=== PATIENT | female | born 1955 | race Caucasian/White ===

== ENCOUNTER → 2017-06-07 | Outpatient (CLI) | payer OTHER ==
[2017-06-07 09:43] LABS: BASO % 0.4 %; BASO ABS # 0.02 K/uL (0-0.2); COMPLETE YES; EOS % 2.5 %; HEMATOCRIT 41.7 % (37-47); IG% 0.2 %; LYMPH % 27.2 %; MEAN CELL VOLUME 91.9 fL (80-100); MEAN CORPUSCULAR HGB CONC 32.6 g/dl (32-36); MEAN PLATELET VOLUME 10.7 fL (7.4-10.4); MONO % 9.1 %; NEUT % 60.6 %; PLATELET COUNT 281 K/uL (130-400); RED BLOOD COUNT 4.54 M/uL (4.2-5.4); WHITE BLOOD COUNT 5.52 K/uL (4.8-10.8)
[2017-06-07 09:54] LABS: BLOOD UREA NITROGEN 12 mg/dl (7-18); BUN/CREATININE RATIO 16.2 (10-20); CALCIUM 9.1 mg/dl (8.5-10.1); CARBON DIOXIDE 28 mmol/L (21-32); CHLORIDE 106 mmol/L (98-107); CREATININE 0.73 mg/dl (0.60-1.20); GLUCOSE 100 mg/dl (70-99); MAGNESIUM 2.4 mg/dl (1.8-2.4); POTASSIUM 3.8 mmol/L (3.5-5.1); SODIUM 140 mmol/L (136-145)
[2017-06-07 10:04] LABS: THYROID STIMULATING HORMONE 0.618 uIu/ml (0.300-4.500)
== END | disposition home or self-care (01) ==
LOC: C.LAB1850 08:30
PROVIDERS: ATTEND Family Medicine
DX: R00.2 Palpitations (principal)

== ENCOUNTER → 2017-08-20 | Outpatient (CLI) | payer OTHER | END | disposition home or self-care (01) | LOC: C.PAPS 16:31 | PROVIDERS: ATTEND Obstetrics & Gynecology | DX: Z12.4 Encounter for screening for malignant neoplasm of cervix (principal) ==

== ENCOUNTER → 2017-09-03 | Outpatient (CLI) | payer OTHER ==
--- NOTE | 2017-09-03 15:33 | MAMMOGRAPHY REPORT ---
BILATERAL DIGITAL SCREENING MAMMOGRAM WITH CAD: 09/03/2017 CLINICAL HISTORY: Routine screening. Patient has no complaints. TECHNIQUE: Current study was also evaluated with a Computer Aided Detection (CAD) system. Bilateral CC and MLO views were obtained. COMPARISON: Comparison is made to exams dated: 08/28/2016 mammogram, 08/26/2015 mammogram, 4 mammogram, 07/25/2013 mammogram, 07/22/2012 mammogram, and 07/16/2011 mammogram - [facility]. BREAST COMPOSITION: There are scattered areas of fibroglandular density in both breasts. FINDINGS: No suspicious masses, calcifications, or areas of architectural distortion are noted in ei ther breast. There has been no significant interval change compared to prior exams. Scattered benign -appearing left breast calcifications are again noted. IMPRESSION: ACR BI-RADS CATEGORY 2: BENIGN There is no mammographic evidence of malignancy. A 1 year screening mammogram is recommended. The pa tient will receive written notification of the results. Approximately 10% of breast cancers are not detected with mammography. A negative mammographic report should not delay biopsy if a clinically suggestive mass is present. Evelin Sam M.D. /:09/03/2017 14:42:50 Sealing Machine Operator: Sheree ESCALANTE(R)(M), [facility] letter sent: Normal 1/2 BI-RADS Code: ACR BI-RADS Category 2: Benign
== END | disposition home or self-care (01) ==
LOC: C.MAMM 14:19
PROVIDERS: ATTEND Family Medicine
DX: Z12.31 Encounter for screening mammogram for malignant neoplasm of breast (principal)

== ENCOUNTER → 2018-01-31 | Day surgery (SDC) | payer OTHER ==
[2018-01-25 13:20] VITALS: Ht 160 cm; Wt 61.4 kg
[~2018-01-31] VITALS: Ht 160 cm; Wt 61.4 kg
[~2018-01-31] MED LIST: FLUT0.15 NAE; LIDOCAINE HCL 2% 2 ML VIAL (20MG/ML) ONE; PROPOFOL IV EMULSION 10 MG/ML 20 ML VIAL ONE; SODIUM CHLORIDE 0.9% 500ML 500 ML IV ONE
--- NOTE | 2018-01-31 14:37 | Endo History and Physical ---
History & Physical Date of Service: January 31, 2018. Chief Complaint: screening Referring Physician: Dr. Betahny Araujo History of Present Illness 62 yo CF who presents for screening colonoscopy. Past Surgical History Hx Cardiac Surgery: No Hx Internal Defibrillator: No Hx Pacemaker: No Hx Abdominal Surgery: No Hx of Implantable Prosthesis: No Hx Cancer Surgery: No Hx Thoracic Surgery: No Hx Orthopedic: No Hx Urinary Tract Surgery: No Family History IBD Social History Smoking Status: Former Smoker Hx Substance Use: No Hx Alcohol Use: No Allergies Coded Allergies: No Known Allergies (Verified , 01/31/18) Current Medications Reported Home Medications Medications Dose Route/Sig Max Daily Dose Days Date Category Flonase Allergy Relief (Fluticasone Propionate (Nasal)) 50 Mcg/Act Spr 1 Puff MC DAILY PRN 01/25/18 Reported Vital Signs Weight (Kilograms): 61.36 Height (Feet): 5 Height (Inches): 3 Date Time Temp Pulse Resp B/P (MAP) Pulse Ox O2 Delivery O2 Flow Rate FiO2 01/31/18 14:18 36.9 80 18 139/84 (102) 96 Room Air Physical Exam General Appearance: WD/WN, no apparent distress Respiratory/Chest: Auscultation: breath sounds normal Cardiovascular: Heart Auscultation: RRR Abdomen: Bowel Sounds: normal Inspection & Palpation: soft, non-distended, no tenderness, guarding & rebound Assessment and Plan Assessment: 62 yo CF who presents for screening colonoscopy. Plan: Proceed with colonoscopy.
--- NOTE | 2018-01-31 15:40 | Anesthesiology Progress Note ---
Anesthesia Post Op Note Date & Time January 31, 2018 at 15:40 Vital Signs Pain Intensity: 0 Vital Signs Past 12 Hours Date Time Temp Pulse Resp B/P (MAP) Pulse Ox O2 Delivery O2 Flow Rate FiO2 01/31/18 14:18 36.9 80 18 139/84 (102) 96 Room Air Notes Mental Status: alert / awake / arousable, participated in evaluation Pt Amnestic to Procedure: Yes Nausea / Vomiting: adequately controlled Pain: adequately controlled Airway Patency, RR, SpO2: stable & adequate BP & HR: stable & adequate Hydration State: stable & adequate Anesthetic Complications: no major complications apparent
--- NOTE | 2018-01-31 15:45 | GI REPORT ---
Patient Name: Pily Coburn Procedure Date: 01/31/2018 2:36 PM Date of : 1955 Admit Type: Outpatient Age: 62 Gender: Female Attending MD: Clarence West DO Procedure: Colonoscopy Providers: Clarence Wets DO Referring MD: Bethany Araujo Md Indications: Screening for colorectal malignant neoplasm Medicines: Monitored Anesthesia Care Complications: No immediate complications. Estimated Blood Loss: Estimated blood loss: none. Procedure: Pre-Anesthesia Assessment: - Prior to the procedure, a History and Physical was performed, and patient medications and allergies were reviewed. The patient's tolerance of previous anesthesia was also reviewed. The risks and benefits of the procedure and the sedation options and risks were discussed with the patient. All questions were answered, and informed consent was obtained. Prior Anticoagulants: The patient has taken no previous anticoagulant or antiplatelet agents. ASA Grade Assessment: III - A patient with severe systemic disease. After reviewing the risks and benefits, the patient was deemed in satisfactory condition to undergo the procedure. After I obtained informed consent, the scope was passed under direct vision. Throughout the procedure, the patient's blood pressure, pulse, and oxygen saturations were monitored continuously. The scope was introduced through the anus and advanced to the terminal ileum. The colonoscopy was performed without difficulty. The patient tolerated the procedure well. The quality of the bowel preparation was good. The terminal ileum, ileocecal valve, appendiceal orifice, and rectum were photographed. Findings: The perianal and digital rectal examinations were normal. Multiple small-mouthed diverticula were found in the sigmoid colon. Non-bleeding internal hemorrhoids were found during retroflexion. The hemorrhoids were small. Impression: - Diverticulosis in the sigmoid colon. - Non-bleeding internal hemorrhoids. - No specimens collected. Recommendation: - Resume previous diet. - Continue present medications. - Repeat colonoscopy in 10 years for surveillance. - Return to primary care physician as previously scheduled. Clarence West DO 01/31/2018 3:44:35 PM This report has been signed electronically. Note Initiated On: 01/31/2018 2:36 PM Number of Addenda: 0 I attest to the content of the Intraoperative Record and orders documented therein, exceptions below {[id number]}
--- NOTE | 2018-01-31 15:46 | Discharge Instructions ---
Endoscopy Patient Instructions Date / Procedure(s) Performed January 31, 2018. Colonoscopy Allergy Information Coded Allergies: No Known Allergies (Verified , 01/31/18) Discharge Date / Findings January 31, 2018. Diverticulosis Internal hemorrhoids Medication Instructions OK to resume all medications today as prescribed Reported Home Medications Medications Dose Route/Sig Max Daily Dose Days Date Category Flonase Allergy Relief (Fluticasone Propionate (Nasal)) 50 Mcg/Act Spr 1 Puff MC DAILY PRN 01/25/18 Reported Provider Instructions Activity Restrictions - No exercising or heavy lifting for 24 hours. - Do not drink alcohol the day of the procedure. - Do not drive a car or operate machinery until the day after the procedure. - Do not make any important decisions or sign important papers in 24 hours after the procedure. Following Day: - Return to full activity which may include returning to work/school. Diet Start your diet with liquids and light foods (jello, soup, juice, toast). Then eat your usual diet if not nauseated. Treatment For Common After Affects For mild abdominal pain, bloating, or excessive gas: - Rest - Eat lightly - Lie on right side Follow-Up Information Follow-up with Dr. Bethany Araujo as scheduled Anesthesia Information What You Should Know You have had a procedure that required some medicine to reduce anxiety and discomfort. This treatment is called moderate sedation. After receiving the treatment, you may be sleepy, but you will be able to breathe on your own. The effects of the treatment may last for several hours. Follow these instructions along with Activity/Diet recommendations noted above: * Do NOT do anything where dizziness or clumsiness would be dangerous. * Rest quietly at home today, then you can be up and about tomorrow. * Have a responsible person stay with you the rest of today. * You may have had an I.V. today. If so, you may take the dressing off later today. Recommendations Call your doctor if: * Trouble breathing * Continuous vomiting for more than 24 hours * Temperature above 101 degrees * Severe abdominal pain or bloating * Pain not relieved by pain medicine ordered * There is increased drainage or redness from any incision * A large amount of rectal bleeding greater than 2-3 tablespoons. (If you had a polyp/s removed or have hemorrhoids, a small amount of blood - from the rectum is to be expected.) * You have any unanswered questions or concerns. IN THE EVENT OF A SERIOUS EMERGENCY, GO TO THE NEAREST EMERGENCY ROOM Your discharge instructions were prepared by provider Clarence West. Patient Instructions Signature Page Pily Coburn Patient (or Guardian) Signature/Date: I have read and understand the instructions given to me by my caregivers. Caregiver/RN/Doctor Signature/Date: The above-named patient and/or guardian has received patient instructions on this date. + Original Patient Signature Page (only) stays with chart. Please make copy for patient.
[2018-01-31 16:09] VITALS: BP 158/88; PULSE 70; O2SAT 98
== END | disposition home or self-care (01) ==
LOC: C.GI 13:39
PROVIDERS: ATTEND Internal Medicine
DX: Z12.11 Encounter for screening for malignant neoplasm of colon (principal); K57.30 Diverticulosis of large intestine without perforation or abscess without bleeding; K64.8 Other hemorrhoids; H54.413A Blindness right eye category 3, normal vision left eye; Z87.891 Personal history of nicotine dependence

== ENCOUNTER 2021-05-15 19:25 | Inpatient (IN) ==
[2021-05-15] MEDS ORDERED: SODIUM CHLORIDE 0.9% 1000ML 1,000 ML IV STA (20:10)
[2021-05-15] MEDS ORDERED: MoRPHine SULFATE 4 MG/ML 1 ML CARP\\VIAL IV PRN (20:10)
[2021-05-15] MEDS ORDERED: ONDANSETRON INJ 2 MG/ML 2 ML VIAL IV STA (20:10)
--- NOTE | 2021-05-15 20:13 | Emergency Department Note ---
Impression & Plan Acute hyponatremia, Acute left flank pain, Urinary tract infection ED Provider Note NAME: RENÉE KIM AGE: 65 SEX: F : 1955 ARRIVES VIA: Walk-In INFORMANT: Patient, ED PROVIDER(S): Evangelist Brice DO CHIEF COMPLAINT: Flank pain HPI: The patient is a 65-year-old female who presented to the emergency department for an evaluation of flank pain. The patient states that she started having hematuria and dysuria this morning. She went to see her family doctor and was started on an antibiotic for presumed urinary tract infection. The patient started having worsening symptoms this evening. She started having pain in her left flank as well as nausea and vomiting. She also notices gross hematuria. The patient states that she is very uncomfortable. She noticed episodes of emesis while she was in the bathroom trying to urinate. She denies having any chest pain. She denies having any difficulty breathing. She has had no recent trauma. She does not have a fever as far she knows. ROS: See above HPI for pertinent positives & negatives. A total of 10 systems reviewed and were otherwise negative. PAST MEDICAL HISTORY: See Below PAST SURGICAL HISTORY: See Below FAMILY HISTORY: See Below SOCIAL HISTORY: See Below HOME MEDICATIONS: See Below ALLERGIES: See Below VITALS: See Below PHYSICAL EXAMINATION: GENERAL: The patient is awake and alert. The patient is very anxious appearing and appears to be uncomfortable. EYES: The conjunctivae are clear. The pupils are round and reactive. EARS, NOSE, MOUTH AND THROAT: The nose is without any evidence of any deformity. NECK: The neck is nontender and supple. RESPIRATORY: Normal respiratory effort is noted there is no evidence of wheezing rhonchi or rales CARDIOVASCULAR: Regular rate and rhythm noted there no murmurs rubs or gallops normal S1 normal S2. GASTROINTESTINAL: The abdomen is soft. Abdomen is nontender. BACK: No midline tenderness was noted. CVA tenderness was noted on the left. MUSCULOSKELETAL/EXTREMITIES: There is no evidence of gross deformity full range of motion is noted in the hips and shoulders. SKIN: There is no obvious evidence of any rash. There are no petechiae, pallor or cyanosis noted. NEUROLOGIC: Patient is awake alert and oriented x3. MEDICAL DECISION MAKING: The patient is a 65-year-old female who presented to the emergency department for an evaluation of flank pain. The patient was awake and alert. She followed commands well but she seems somewhat confused at times. Ultimately she was oriented x3 but I am unsure if this is the patient's baseline mental status as she has no visitors at this time. The patient was treated with IV fluids and IV antibiotics for presumed urinary tract infection. I discussed the patient's laboratory and radiographic studies with her. She was found to have signs of urinary tract infection on urinalysis. Her sodium was found to be very low. The patient states that she was at the [facility] fair last week and thought she may be dehydrated. She had no fever. She had no cough symptoms. Further work-up was obtained to evaluate the patient's hyponatremia. [facility] have agreed to evaluate patient in the emergency department for further management and disposition. Triage Nursing notes reviewed. Prior medical records reviewed Vital Signs: reviewed and remarkable for no significant abnormalities Differential diagnosis: Renal colic, UTI, appendicitis, diverticulitis, mesenteric ischemia, aortic pathology, infections, inflammatory bowel disease, PUD, biliary pathology, as well as other pathologies. ER treatment provided: See below Diagnostics interpreted by me: ECG: EKG was obtained in the emergency department. My interpretation is normal sinus rhythm at 70 bpm. There was no ectopy. There was no acute ST segment abnormalities noted. No previous tracing was available. Cardiac Monitoring: An order was placed for continuous cardiac monitoring. The monitor shows a rate of 69 bpm with sinus rhythm. Laboratory studies: As stated above and show below. Imaging studies: See below Consultation(s): I discussed this case with Dr. Singh who is on-call for the [facility] hospitalist group. Past Med/Surg History Medical History Anxiety Diverticulosis Gastroesophageal reflux disease Gross hematuria Hematuria, microscopic Surgical History H/O parotidectomy History of sinus surgery History of tonsillectomy Family History Father Hypertension Lung cancer Mother Squamous cell carcinoma Denies family history of Ovarian cancer Prostate cancer Clotting disorder Myocardial infarction Breast cancer Colorectal cancer Social History Smoking Status: Former smoker Age Started Using Tobacco: 14; Age Quit Using Tobacco: 48; packs per day: 1; Second Hand Exposure: No; Hx Alcohol Use: No Hx Substance Use: No Preferred Language: Sri Lankan Visual Impairment: No Limitations Hearing Ability: Normal marital status: Single Current Living Situation: Alone current occupational status: retired current occupation: [employer] Feels Safe at Home: Yes Childhood Exposure to Second-Hand Smoke: No Dental Care, Regularly: Yes Physical Activity Frequency: 1-2 Times per Week Seatbelt Use: always Sunscreen Use: Yes Allergies Allergies Allergy/AdvReac Type Severity Reaction Status Date / Time cat dander Allergy Unknown Verified 05/15/21 21:25 house dust mite Allergy Unknown Verified 05/15/21 21:25 mold Allergy Unknown Verified 05/15/21 21:25 Home Meds Previous Rx's Medication Instructions Recorded escitalopram oxalate 10 mg tablet 10 mg PO DAILY #90 tab 11/11/20 nitrofurantoin 100 mg PO Q12H 5 Days #10 cap 05/15/21 monohydrate/macrocrystals 100 mg capsule (Macrobid) Results & Data (ED) Vital Signs Vital Signs - 24 hr 05/15/21 19:30 05/15/21 20:09 05/15/21 21:07 Temperature 36.5 C Temperature Source Temporal Artery Scan Pulse Rate 74 69 70 Pulse Rate from SpO2 Sensor 68 Respiratory Rate 18 17 18 Respiratory Effort / Characteristics Non-Labored Spontaneous Respiratory Depth Normal Respiratory Pattern Regular Blood Pressure 181/85 H 167/108 H Blood Pressure Mean 117 127 Blood Pressure Position Sitting Pulse Oximetry 97 97 96 Oxygen Delivery Method Room Air Room Air Room Air Sepsis Recent Fever Within 48 Hours No Sepsis New/Unexplained Change in Mental Status No Sepsis Action Taken by Nursing No Action Required 05/15/21 21:45 05/15/21 22:00 05/15/21 22:30 Temperature Temperature Source Pulse Rate 73 74 75 Pulse Rate from SpO2 Sensor 73 74 73 Respiratory Rate 20 17 18 Respiratory Effort / Characteristics Respiratory Depth Respiratory Pattern Blood Pressure 165/78 H 137/83 138/79 Blood Pressure Mean 107 101 98 Blood Pressure Position Pulse Oximetry 97 97 95 Oxygen Delivery Method Room Air Room Air Room Air Sepsis Recent Fever Within 48 Hours Sepsis New/Unexplained Change in Mental Status Sepsis Action Taken by Nursing 05/15/21 23:00 Temperature Temperature Source Pulse Rate 69 Pulse Rate from SpO2 Sensor 69 Respiratory Rate 14 Respiratory Effort / Characteristics Respiratory Depth Respiratory Pattern Blood Pressure 122/80 Blood Pressure Mean 94 Blood Pressure Position Pulse Oximetry 96 Oxygen Delivery Method Room Air Sepsis Recent Fever Within 48 Hours Sepsis New/Unexplained Change in Mental Status Sepsis Action Taken by Care Home Medications Current Medication List: was personally reviewed by me Laboratory Data Attestation: I reviewed the patient's lab results. Result diagrams: 05/15/21 20:20 05/15/21 20:20 Lab Results 05/15/21 05/15/21 05/15/21 Range/Units 20:20 20:20 20:20 WBC 16.61 H (4.8-10.8) K/uL RBC 4.44 (4.2-5.4) M/uL Hgb 13.4 (12.0-16.0) g/dL Hct 38.9 (37-47) % MCV 87.6 (80-100) fL MCH 30.2 (25-34) pg MCHC 34.4 (32-36) g/dL RDW Std Deviation 39.8 (36.4-46.3) fL RDW Coeff of Sylvain 12.4 (11.5-14.5) % Plt Count 312 (130-400) K/uL MPV 10.2 (7.4-10.4) fL Immature Gran % (Auto) 0.3 % Neut % (Auto) 88.4 % Lymph % (Auto) 8.1 % Ashe % (Auto) 3.0 % Eos % (Auto) 0.1 % Baso % (Auto) 0.1 % Neut # (Auto) 14.68 H (1.4-6.5) K/uL Lymph # (Auto) 1.35 (1.2-3.4) K/uL Ashe # (Auto) 0.50 (0.11-0.59) K/uL Eos # (Auto) 0.01 (0-0.5) K/uL Baso # (Auto) 0.02 (0-0.2) K/uL Immature Gran # (Auto) 0.05 H (0.00-0.02) K/uL Sodium 123 L (136-145) mmol/L Potassium 3.4 L (3.5-5.1) mmol/L Chloride 90 L (98-107) mmol/L Carbon Dioxide 20 L (21-32) mmol/L Anion Gap 12.0 H (3-11) BUN 12 (7-18) mg/dl Creatinine 0.87 (0.6-1.2) mg/dl Est Cr Clr Drug Dosing 56.0 ml/min Est GFR ( Amer) 79.9 ml/min Est GFR (Non-Af Amer) 68.9 ml/min BUN/Creatinine Ratio 13.6 (10-20) Glucose 155 H (70-99) mg/dl Osmolality 257 L (280-300) mOsm/kg Calcium 8.7 (8.5-10.1) mg/dl Magnesium 1.9 (1.8-2.4) mg/dl Total Bilirubin 1.1 H (0.2-1) mg/dl AST 20 (15-37) U/L ALT 31 (12-78) U/L Alkaline Phosphatase 77 (45-117) U/L Troponin I < 0.015 (0-0.045) ng/ml Total Protein 7.6 (6.4-8.2) gm/dl Albumin 4.1 (3.4-5.0) gm/dl Globulin 3.5 (2.5-4.0) gm/dl Albumin/Globulin Ratio 1.2 (0.9-2) Lipase 246 (73-393) U/L Urine Color Urine Appearance (Clear) Urine pH (4.5-7.5) Ur Specific [place] (1.000-1.030) Urine Protein (Negative) Urine Glucose (UA) (Negative) Urine Ketones (Negative) Urine Blood (Negative) Urine Nitrite (Negative) Urine Bilirubin (Negative) Urine Urobilinogen (Negative) Ur Leukocyte Esterase (Negative) Urine WBC (Auto) (0-5) /hpf Urine RBC (Auto) (0-4) /hpf U Hyaline Cast (Auto) (0-5) /lpf U Epithel Cells (Auto) (0-5) /lpf Urine Bacteria (Auto) (Negative) Urine Osmolality (500-800) mOsm/kg Ur Random Sodium mmol/L COVID-19 Eval Order 05/15/21 05/15/21 05/15/21 Range/Units 21:44 21:53 21:53 WBC (4.8-10.8) K/uL RBC (4.2-5.4) M/uL Hgb (12.0-16.0) g/dL Hct (37-47) % MCV (80-100) fL MCH (25-34) pg MCHC (32-36) g/dL RDW Std Deviation (36.4-46.3) fL RDW Coeff of Sylvain (11.5-14.5) % Plt Count (130-400) K/uL MPV (7.4-10.4) fL Immature Gran % (Auto) % Neut % (Auto) % Lymph % (Auto) % Ashe % (Auto) % Eos % (Auto) % Baso % (Auto) % Neut # (Auto) (1.4-6.5) K/uL Lymph # (Auto) (1.2-3.4) K/uL Ashe # (Auto) (0.11-0.59) K/uL Eos # (Auto) (0-0.5) K/uL Baso # (Auto) (0-0.2) K/uL Immature Gran # (Auto) (0.00-0.02) K/uL Sodium (136-145) mmol/L Potassium (3.5-5.1) mmol/L Chloride (98-107) mmol/L Carbon Dioxide (21-32) mmol/L Anion Gap (3-11) BUN (7-18) mg/dl Creatinine (0.6-1.2) mg/dl Est Cr Clr Drug Dosing ml/min Est GFR ( Amer) ml/min Est GFR (Non-Af Amer) ml/min BUN/Creatinine Ratio (10-20) Glucose (70-99) mg/dl Osmolality (280-300) mOsm/kg Calcium (8.5-10.1) mg/dl Magnesium (1.8-2.4) mg/dl Total Bilirubin (0.2-1) mg/dl AST (15-37) U/L ALT (12-78) U/L Alkaline Phosphatase (45-117) U/L Troponin I (0-0.045) ng/ml Total Protein (6.4-8.2) gm/dl Albumin (3.4-5.0) gm/dl Globulin (2.5-4.0) gm/dl Albumin/Globulin Ratio (0.9-2) Lipase (73-393) U/L Urine Color Yellow Urine Appearance Clear (Clear) Urine pH 6.5 (4.5-7.5) Ur Specific [place] 1.009 (1.000-1.030) Urine Protein Negative (Negative) Urine Glucose (UA) Trace H (Negative) Urine Ketones 1+ H (Negative) Urine Blood 3+ H (Negative) Urine Nitrite Negative (Negative) Urine Bilirubin Negative (Negative) Urine Urobilinogen Negative (Negative) Ur Leukocyte Esterase Trace H (Negative) Urine WBC (Auto) 10-30 H (0-5) /hpf Urine RBC (Auto) 10-30 H (0-4) /hpf U Hyaline Cast (Auto) 1-5 (0-5) /lpf U Epithel Cells (Auto) 10-20 H (0-5) /lpf Urine Bacteria (Auto) Negative (Negative) Urine Osmolality 311 L (500-800) mOsm/kg Ur Random Sodium 67 mmol/L COVID-19 Eval Order 05/16/21 Range/Units 00:00 WBC (4.8-10.8) K/uL RBC (4.2-5.4) M/uL Hgb (12.0-16.0) g/dL Hct (37-47) % MCV (80-100) fL MCH (25-34) pg MCHC (32-36) g/dL RDW Std Deviation (36.4-46.3) fL RDW Coeff of Sylvain (11.5-14.5) % Plt Count (130-400) K/uL MPV (7.4-10.4) fL Immature Gran % (Auto) % Neut % (Auto) % Lymph % (Auto) % Ashe % (Auto) % Eos % (Auto) % Baso % (Auto) % Neut # (Auto) (1.4-6.5) K/uL Lymph # (Auto) (1.2-3.4) K/uL Ashe # (Auto) (0.11-0.59) K/uL Eos # (Auto) (0-0.5) K/uL Baso # (Auto) (0-0.2) K/uL Immature Gran # (Auto) (0.00-0.02) K/uL Sodium (136-145) mmol/L Potassium (3.5-5.1) mmol/L Chloride (98-107) mmol/L Carbon Dioxide (21-32) mmol/L Anion Gap (3-11) BUN (7-18) mg/dl Creatinine (0.6-1.2) mg/dl Est Cr Clr Drug Dosing ml/min Est GFR ( Amer) ml/min Est GFR (Non-Af Amer) ml/min BUN/Creatinine Ratio (10-20) Glucose (70-99) mg/dl Osmolality (280-300) mOsm/kg Calcium (8.5-10.1) mg/dl Magnesium (1.8-2.4) mg/dl Total Bilirubin (0.2-1) mg/dl AST (15-37) U/L ALT (12-78) U/L Alkaline Phosphatase (45-117) U/L Troponin I (0-0.045) ng/ml Total Protein (6.4-8.2) gm/dl Albumin (3.4-5.0) gm/dl Globulin (2.5-4.0) gm/dl Albumin/Globulin Ratio (0.9-2) Lipase (73-393) U/L Urine Color Urine Appearance (Clear) Urine pH (4.5-7.5) Ur Specific [place] (1.000-1.030) Urine Protein (Negative) Urine Glucose (UA) (Negative) Urine Ketones (Negative) Urine Blood (Negative) Urine Nitrite (Negative) Urine Bilirubin (Negative) Urine Urobilinogen (Negative) Ur Leukocyte Esterase (Negative) Urine WBC (Auto) (0-5) /hpf Urine RBC (Auto) (0-4) /hpf U Hyaline Cast (Auto) (0-5) /lpf U Epithel Cells (Auto) (0-5) /lpf Urine Bacteria (Auto) (Negative) Urine Osmolality (500-800) mOsm/kg Ur Random Sodium mmol/L COVID-19 Eval Order Covid19 at [facility] Administered Medications Discontinued Medications Sodium Chloride (Nss 1000ml) 1,000 mls @ 999 mls/hr IV .Q1H1M STA Stop: 05/15/21 21:10 Last Infusion: 05/15/21 21:31 Dose: 0 mls/hr Documented by: [id number] Admin: 05/15/21 20:30 Dose: 999 mls/hr Documented by: [id number] Ceftriaxone Sodium (Rocephin) 1,000 mg in 50 mls @ 100 mls/hr IV NOW STA Stop: 05/15/21 23:37 Last Infusion: 05/16/21 00:18 Dose: 0 mls/hr Documented by: [id number] Admin: 05/15/21 23:48 Dose: 100 mls/hr Documented by: [id number] Sodium Chloride (Nss 1000ml) 1,000 mls @ 999 mls/hr IV .Q1H1M ONE Stop: 05/16/21 00:38 Last Admin: 05/15/21 23:48 Dose: 999 mls/hr Documented by: [id number] Ondansetron HCl (Ondansetron Inj 2 Mg/Ml 2 Ml Vial) 4 mg IV NOW STA Stop: 05/15/21 20:11 Last Admin: 05/15/21 20:30 Dose: 4 mg Documented by: [id number] Imaging Data Attestation: I personally reviewed and interpreted this imaging study as follows: My Impression: 1 view chest x-ray was obtained in the emergency department. My interpretation is elevation of the right hemidiaphragm. There is no infiltrate. There is no free air. No acute disease, this was compared to a chest x-ray from February 142015. No significant changes were noted. Radiologist's Impression: Abdomen/Pelvis CT 05/15/21 20:10 CT SCAN OF THE ABDOMEN AND PELVIS WITHOUT CONTRAST CLINICAL HISTORY: left flank oain . Nausea COMPARISON STUDY: November 06, 2019 TECHNIQUE: CT scan of the abdomen and pelvis was performed from the lung bases to the proximal femurs. Images are reviewed in the axial, sagittal, and coronal planes. IV contrast was not administered for this examination. A dose lowering technique was utilized adhering to the principles of ALARA. CT DOSE: 310.98 mGy.cm FINDINGS: Lower chest: Mild atelectasis at posterior aspect of the bilateral lower lobe and the right base. Liver: The unenhanced liver is normal in size, contour, and attenuation. There is no intrahepatic biliary ductal dilatation. Gallbladder: Unremarkable. Spleen: Normal in size and attenuation. Pancreas: Interval development of questionable focal area of decreased at tenuation within pancreatic body/tail (3/156). Evaluation is suboptimal due to lack of IV contrast. Adrenal glands: Unremarkable. Kidneys: The unenhanced kidneys are normal in size without hydronephrosis. There is no contour deforming renal mass lesion. Few punctate calcification within right renal parenchyma are seen (3/177) no calcifications within renal pelvises are demonstrated. Previously seen right renal cysts are not visualized on this n onenhanced exam. Bowel: Small bowel loops are nondilated. Appendix is not well seen. Diverticulosis of sigmoid colon is seen without evidence of diverticulitis. Peritoneum: There is no intraperitoneal free air or abdominal ascites. Vasculature: The abdominal aorta is normal in course and caliber. Adenopathy: None. Pelvic viscera: The bladder, and pelvic viscera are unremarkable. Skeletal structures: Multilevel degenerative changes of the spine. IMPRESSION: 1. No acute intra-abdominal process. Nondilated loops of bowel. Appendix is not well seen. 2. Questionable hypoattenuating area within pancreatic body/tail. Was not definitely seen on prior study. No surrounding fat stranding is seen. Evaluation is suboptimal due to lack of IV contrast. Further evaluation with CT of the abdomen, pancreatic protocol is suggested. 3. Few punctate calcifications within right renal parenchyma. Previously seen cyst within this region are not visualized on current exam. No hydronephrosis or calcification within renal pelvises are seen. 4. Diverticulosis of sigmoid colon without evidence of diverticulitis. 5. The rest of findings as above. ACT 112: Negative or not required by law. The above report was generated using voice recognition software. It may contain grammatical, syntax or spelling errors. Electronically signed by: Arianna Tyler DO 05/15/2021 10:22 PM Discharge Plan Visit Data Chief Complaint: Flank Pain Stated Complaint: PAIN IN KIDNEY ED Provider: Evangelist Brice Discharge Problem: Acute hyponatremia, Acute left flank pain, Urinary tract infection Patient Disposition: Being Evaluated by Hospitalist Forms Stand Alone Forms: My [employer] Prescriptions Prescriptions: No Action escitalopram oxalate 10 mg tablet 10 mg PO DAILY Qty: 90 RF: 3 nitrofurantoin monohyd/m-cryst [Macrobid] 100 mg capsule 100 mg PO Q12H 5 Days Qty: 10 RF: 0 Referrals Referrals: Bethany Araujo MD [Primary Care Provider] - Discharge Problem: Urinary tract infection Qualifiers: Urinary tract infection type: site unspecified Hematuria presence: with hematuria Qualified Code(s): N39.0 - Urinary tract infection, site not specified
[2021-05-15 20:30] LABS: Basophils # (auto) 0.02 K/uL (0-0.2); Basophils % (auto) 0.1 %; Eosinophils # (auto) 0.01 K/uL (0-0.5); Eosinophils % (auto) 0.1 %; Hematocrit (blood only) 38.9 % (37-47); Hemoglobin 13.4 g/dL (12.0-16.0); Immature Granulocytes # (auto) 0.05 K/uL (0.00-0.02); Immature Granulocytes % (auto) 0.3 %; Lymphocytes # (auto) 1.35 K/uL (1.2-3.4); Lymphocytes % (auto) 8.1 %; Mean Corpuscular Hemoglobin 30.2 pg (25-34); Mean Corpuscular Hgb Conc 34.4 g/dL (32-36); Mean Corpuscular Volume 87.6 fL (80-100); Mean Platelet Volume 10.2 fL (7.4-10.4); Neutrophils # (auto) 14.68 K/uL (1.4-6.5); Neutrophils % (auto) 88.4 %; Platelet Count 312 K/uL (130-400); RDW Coefficient of Variation 12.4 % (11.5-14.5); RDW Standard Deviation 39.8 fL (36.4-46.3); Red Blood Count 4.44 M/uL (4.2-5.4); White Blood Count 16.61 K/uL (4.8-10.8)
[2021-05-15 20:49] LABS: Alanine Aminotransferase 31 U/L (12-78); Albumin Level 4.1 gm/dl (3.4-5.0); Aspartate Aminotransferase 20 U/L (15-37); BUN Creatinine Ratio 13.6 (10-20); Blood Urea Nitrogen 12 mg/dl (7-18); Calcium 8.7 mg/dl (8.5-10.1); Carbon Dioxide 20 mmol/L (21-32); Chloride 90 mmol/L (98-107); Est GFR (African American) 79.9 ml/min; Est GFR (Non-African American) 68.9 ml/min; Glucose 155 mg/dl (70-99); Lipase 246 U/L (73-393); Potassium 3.4 mmol/L (3.5-5.1); Sodium 123 mmol/L (136-145)
[2021-05-15 20:52] LABS: Albumin Globulin Ratio 1.2 (0.9-2); Alkaline Phosphatase 77 U/L (45-117); Bilirubin,Total 1.1 mg/dl (0.2-1); Globulin 3.5 gm/dl (2.5-4.0); Total Protein 7.6 gm/dl (6.4-8.2)
[2021-05-15 22:18] LABS: Appearance Urine Clear (Clear); Bacteria Urine Automated Negative (Negative); Bilirubin Urine Negative (Negative); Blood Urine 3+ (Negative); Color Urine Yellow; Glucose Urine UA Trace (Negative); Ketones Urine 1+ (Negative); Leukocyte Esterase Urine Trace (Negative); Nitrite Urine Negative (Negative); Protein Urine Negative (Negative); Specific Gravity Urine 1.009 (1.000-1.030); Urobilinogen Urine Negative (Negative); pH Urine 6.5 (4.5-7.5)
--- NOTE | 2021-05-15 22:24 | CT Scan Report ---
CT SCAN OF THE ABDOMEN AND PELVIS WITHOUT CONTRAST CLINICAL HISTORY: left flank oain . Nausea COMPARISON STUDY: November 06, 2019 TECHNIQUE: CT scan of the abdomen and pelvis was performed from the lung bases to the proximal femurs . Images are reviewed in the axial, sagittal, and coronal planes. IV contrast was not administered fo r this examination. A dose lowering technique was utilized adhering to the principles of ALARA. CT DOSE: 310.98 mGy.cm FINDINGS: Lower chest: Mild atelectasis at posterior aspect of the bilateral lower lobe and the right base. Liver: The unenhanced liver is normal in size, contour, and attenuation. There is no intrahepatic beena iary ductal dilatation. Gallbladder: Unremarkable. Spleen: Normal in size and attenuation. Pancreas: Interval development of questionable focal area of decreased attenuation within pancreatic body/tail (3/156). Evaluation is suboptimal due to lack of IV contrast. Adrenal glands: Unremarkable. Kidneys: The unenhanced kidneys are normal in size without hydronephrosis. There is no contour deform ing renal mass lesion. Few punctate calcification within right renal parenchyma are seen (3/177) no c alcifications within renal pelvises are demonstrated. Previously seen right renal cysts are not visua lized on this nonenhanced exam. Bowel: Small bowel loops are nondilated. Appendix is not well seen. Diverticulosis of sigmoid colon i s seen without evidence of diverticulitis. Peritoneum: There is no intraperitoneal free air or abdominal ascites. Vasculature: The abdominal aorta is normal in course and caliber. Adenopathy: None. Pelvic viscera: The bladder, and pelvic viscera are unremarkable. Skeletal structures: Multilevel degenerative changes of the spine. IMPRESSION: 1. No acute intra-abdominal process. Nondilated loops of bowel. Appendix is not well seen. 2. Questionable hypoattenuating area within pancreatic body/tail. Was not definitely seen on prior s tudy. No surrounding fat stranding is seen. Evaluation is suboptimal due to lack of IV contrast. Furt her evaluation with CT of the abdomen, pancreatic protocol is suggested. 3. Few punctate calcifications within right renal parenchyma. Previously seen cyst within this regio n are not visualized on current exam. No hydronephrosis or calcification within renal pelvises are se en. 4. Diverticulosis of sigmoid colon without evidence of diverticulitis. 5. The rest of findings as above. ACT 112: Negative or not required by law. The above report was generated using voice recognition software. It may contain grammatical, syntax o r spelling errors. Electronically signed by: Arianna Tyler DO 05/15/2021 10:22 PM
[2021-05-15] MEDS ORDERED: cefTRIAXone SODIUM 1,000 MG/50 ML BAG IV STA (23:08)
[2021-05-15] MEDS ORDERED: SODIUM CHLORIDE 0.9% 1000ML 1,000 ML IV ONE (23:38)
[2021-05-16 00:28] LABS: Magnesium 1.9 mg/dl (1.8-2.4); Troponin I < 0.015 ng/ml (0-0.045)
--- NOTE | 2021-05-16 00:38 | History & Physical Report ---
Date of Service May 16, 2021 Assessment & Plan (1) Acute hyponatremia: Plan: Patient is a 65 year old female with PMHx anxiety and hematuria secondary to UTI's that presents at the advice of her PCPs for concerns of worsening L flank pain with suspected UTI, hematuria, nausea, and vomiting. Urinary Tract Infection -CT ab/pelv negative for renal stones or hydronephrosis -UA with 3+ blood and Leuk est - cultures pending -Started on Macrobid and has taken 1x dose outpatient -CTX in ED, will continue CTX 1g QD Hyponatremia with mild gap metabolic acidosis, secondary to polydipsia -Hyponatremia at Na 123 on admission -Suspect secondary to patient's significant fluid intake throughout the day of 184oz or 5.4L of water -CT head pending for signs of compressive mass -Received 2L NSS bolus in the ED -At this time will fluid restrict patient, repeat labs in 4 hours to monitor hyponatremia Hypokalemia -K 3.4 on admission -Will give 20meq KCl PO now Anxiety -Continue home Lexapro Dispo: Med/Surg for monitoring of sodium level FEN: Strict NPO, only sips for medications DVT: SCDs Code: Full (2) Urinary tract infection: History of Present Illness Chief Complaint: Nausea, vomiting, L flank pain Primary Care Provider: Bethany Araujo MD Patient is a 65 year old female with PMHx anxiety and hematuria secondary to UTI's that presents at the advice of her PCPs for concerns of worsening L flank pain with suspected UTI, hematuria, nausea, and vomiting. Patient notes that around 8AM this morning she had dysuria along with gross hematuria. She notes that this has happened quite often to her in the past and that she knows it as a UTI. She was seen shortly after around 9AM at her PCPs office where she was started on Macrobid for suspected UTI. Patient notes she started taking this around 11AM and that over all her symptoms improved until around 3AM when she began having dysuria again. She notes that around 6:30PM she had nausea with vomiting and had called her PCPs office again and was instructed to come to the ED for further evaluation. Of note, patient notes drinking a significant amount of water throughout the day as in the past "drinking more makes my symptoms get better." She drank water at the amounts of 40oz between 11am-3PM, 48oz 3PM-5PM, 96oz 5-6:30PM for a cumulative total of 184oz or 5.4L of water throughout the day. She notes that because of feeling ill she also had reduced appetite. She currently notes that she still has some lower abdominal discomfort, but states that the dysuria has for the most part resolved and she is no longer visible peeing blood. She denies any fever, chills, SOB, chest pain, visual changes, weakness. Med Hx - Anxiety, Hematuria secondary to UTI's Surg HX: Sinus surgery Soc Hx: Denies tobacco, alcohol, illicit drug use. Notes history of tobacco and alcohol use but quit in 2002. Allergies Allergy/AdvReac Type Severity Reaction Status Date / Time cat dander Allergy Unknown Verified 05/15/21 21:25 house dust mite Allergy Unknown Verified 05/15/21 21:25 mold Allergy Unknown Verified 05/15/21 21:25 Home Medications Medication Instructions Recorded Confirmed Type escitalopram oxalate 10 mg tablet 10 mg PO DAILY #90 tab 11/11/20 05/15/21 Rx cefdinir 300 mg capsule 300 mg PO BID 6 Days #12 cap 05/16/21 Rx Past Med/Surg History Medical History Anxiety Diverticulosis Gastroesophageal reflux disease Gross hematuria Hematuria, microscopic Surgical History H/O parotidectomy History of sinus surgery History of tonsillectomy Family History Father Hypertension Lung cancer Mother Squamous cell carcinoma Denies family history of Ovarian cancer Prostate cancer Clotting disorder Myocardial infarction Breast cancer Colorectal cancer Social History Smoking Status: Former smoker Age Started Using Tobacco: 14; Age Quit Using Tobacco: 48; packs per day: 1; Second Hand Exposure: No; Hx Alcohol Use: No Hx Substance Use: No Preferred Language: Yakut Communication Ability: Effective Visual Impairment: No Limitations Hearing Ability: Normal Beliefs That Will Affect Care: None marital status: Single Current Living Situation: Alone current occupational status: retired current occupation: [employer] Feels Safe at Home: Yes Childhood Exposure to Second-Hand Smoke: No Dental Care, Regularly: Yes Physical Activity Frequency: 1-2 Times per Week Seatbelt Use: always Sunscreen Use: Yes Assistive Devices: None Review of Systems Review of Systems: All systems reviewed & are unremarkable except as noted in Subjective Physical Exam Constitutional: well developed, well nourished and cooperative; no acute distress Eyes: + anicteric sclerae; no eyelid abnormality, no conjunctival abnormality and no scleral abnormality ENMT: external ear and nose normal, oropharynx normal Neck: trachea midline, no thyromegaly Respiratory: normal respiratory effort; no cough Auscultation: lungs clear to auscultation bilaterally; no diminished lung sounds, no crackles, no rales and no wheezes Cardiovascular: Rate/Rhythm: regular rate and regular rhythm Heart Sounds: normal S1 and normal S2; no murmur and no cardiac rub Vessels: no JVD Extremities: no calf tenderness and no edema Gastrointestinal (Abdomen): Inspection/Auscultation: abdomen normal to inspection and normal bowel sounds; abdomen not distended Percussion/Palpation: + abdomen tender (mild discomfort with palpation of suprapubic ) and abdomen soft; no guarding and abdomen not rigid Musculoskeletal: no cyanosis or clubbing, extremities motor strength 5/5 Head/Neck/Chest: normocephalic and head atraumatic Skin: no rashes, warm and dry Psychiatric: A+Ox3, euthymic affect Results & Data Results & Data ([facility]) Vital Signs (Past 12 Hours) Vital Signs Temp Pulse Resp BP Pulse Ox 05/15/21 23:00 69 14 122/80 96 05/15/21 22:30 75 18 138/79 95 05/15/21 22:00 74 17 137/83 97 05/15/21 21:45 73 20 165/78 H 97 05/15/21 21:07 70 18 96 05/15/21 20:09 69 17 167/108 H 97 05/15/21 19:30 36.5 C 74 18 181/85 H 97 Supervising Physician Co-Signing Physician Notes Attending addendum: I have physically seen this patient, have supervised the medical residents activities, and agree with the H&P unless as otherwise noted. Assessment and Plan: Acute hyponatremia- Sodium 123, serum osmolality 257, urine osmolality 311 Patient drank 184 ounces of water over several hours in her attempt to try to self treat a UTI Fluid restrict Recheck laboratories in a.m. Further treatment in a.m. pending results of testing UTI- Stop outpatient Macrobid Continue ceftriaxone 1 g IV daily begun in ED Remaining orders and notations as noted Resident Activity Tracking Resident Involvement: Resident Care Provided Care Provided: Adult Hospital Medicine (1) Urinary tract infection Hematuria presence: with hematuria Urinary tract infection type: site unspecified Qualified Code(s): N39.0 - Urinary tract infection, site not specified; R31.9 - Hematuria, unspecified
[2021-05-16] MEDS ORDERED: POTASSIUM CHLORIDE CRTAB 20 MEQ TABCR PO STA (01:09)
[2021-05-16 03:37] LABS: Basophils # (auto) 0.01 K/uL (0-0.2); Basophils % (auto) 0.1 %; Eosinophils # (auto) 0.01 K/uL (0-0.5); Eosinophils % (auto) 0.1 %; Hematocrit (blood only) 37.2 % (37-47); Hemoglobin 12.8 g/dL (12.0-16.0); Immature Granulocytes # (auto) 0.03 K/uL (0.00-0.02); Immature Granulocytes % (auto) 0.3 %; Lymphocytes # (auto) 1.58 K/uL (1.2-3.4); Lymphocytes % (auto) 15.1 %; Mean Corpuscular Hemoglobin 30.1 pg (25-34); Mean Corpuscular Hgb Conc 34.4 g/dL (32-36); Mean Corpuscular Volume 87.5 fL (80-100); Mean Platelet Volume 9.8 fL (7.4-10.4); Monocytes # (auto) 0.59 K/uL (0.11-0.59); Monocytes % (auto) 5.7 %; Neutrophils # (auto) 8.21 K/uL (1.4-6.5); Neutrophils % (auto) 78.7 %; Platelet Count 285 K/uL (130-400); RDW Coefficient of Variation 12.3 % (11.5-14.5); RDW Standard Deviation 39.4 fL (36.4-46.3); Red Blood Count 4.25 M/uL (4.2-5.4); White Blood Count 10.43 K/uL (4.8-10.8)
[2021-05-16 03:45] LABS: Oxygen Saturation VBG 69.7 %; pH VBG 7.39 (7.36-7.41)
[2021-05-16 04:01] LABS: BUN Creatinine Ratio 13.2 (10-20); Calcium 8.3 mg/dl (8.5-10.1); Creatinine Clr Calc Pharmacy 69.4 ml/min; Est GFR (African American) 103.9 ml/min; Est GFR (Non-African American) 89.7 ml/min; Potassium 4.2 mmol/L (3.5-5.1)
--- NOTE | 2021-05-16 07:08 | CT Scan Report ---
CT SCAN OF THE BRAIN WITHOUT IV CONTRAST CLINICAL HISTORY: Change in mental status. COMPARISON STUDY: No priors. TECHNIQUE: Unenhanced axial CT scan of the brain is performed from the vertex to the skull base. A d ose lowering technique was utilized adhering to the principles of ALARA. CT DOSE: 537.48 mGy.cm FINDINGS: Brain parenchyma: The brain parenchyma is normal in appearance. There is no hemorrhage, mass effect, or evidence of acute territorial ischemia by CT criteria. Galindo-white matter differentiation is preser gregory. No extra-axial fluid collection is seen. Ventricles, sulci, cisterns: Normal in configuration. Intracranial vasculature: The visualized intracranial vasculature at the skull base is normal in appe arance. Calvarium: Unremarkable. Sinuses and mastoids: There is evidence of previous paranasal sinus surgery. The visualized paranasal sinuses are clear. The mastoid air cells are well pneumatized. Orbits: Postoperative change is noted involving the right orbit. The orbits are otherwise grossly int act. IMPRESSION: There is no hemorrhage, mass effect, or evidence of acute territorial ischemia by CT bobby davis. ACT 112: Negative or not required by law. Electronically signed by: Kt Howard M.D. 05/16/2021 7:07 AM
[2021-05-16 07:44] LABS: Estimated Average Glucose 114 mg/dl; Hemoglobin A1C 5.6 % (4.5-5.6)
--- NOTE | 2021-05-16 08:17 | XRay Report ---
SINGLE VIEW CHEST CLINICAL HISTORY: Hyponatremia. FINDINGS: An AP, portable, upright chest radiograph is compared to study dated 02/15/2016. The examinat ion is mildly degraded by portable technique and patient rotation. The cardiomediastinal silhouette i s unremarkable. There is mild chronic elevation of the right hemidiaphragm with bibasilar atelectasis . No airspace consolidation or large pleural effusion is identified. No pneumothorax is seen. The bon y thorax is grossly intact. IMPRESSION: No active disease in the chest. ACT 112: Negative or not required by law. Electronically signed by: Kt Howard M.D. 05/16/2021 8:16 AM
[2021-05-16] MEDS ORDERED: ESCITALOPRAM OXALATE 10 MG TAB PO SCH (09:00)
--- NOTE | 2021-05-16 15:53 | Discharge Summary ---
Date of Service May 16, 2021 Admission HPI Per Admitting Provider Patient is a 65 year old female with PMHx anxiety and hematuria secondary to UTI's that presents at the advice of her PCPs for concerns of worsening L flank pain with suspected UTI, hematuria, nausea, and vomiting. Patient notes that around 8AM this morning she had dysuria along with gross hematuria. She notes that this has happened quite often to her in the past and that she knows it as a UTI. She was seen shortly after around 9AM at her PCPs office where she was started on Macrobid for suspected UTI. Patient notes she started taking this around 11AM and that over all her symptoms improved until around 3AM when she began having dysuria again. She notes that around 6:30PM she had nausea with vomiting and had called her PCPs office again and was instructed to come to the ED for further evaluation. Of note, patient notes drinking a significant amount of water throughout the day as in the past "drinking more makes my symptoms get better." She drank water at the amounts of 40oz between 11am-3PM, 48oz 3PM-5PM, 96oz 5-6:30PM for a cumulative total of 184oz or 5.4L of water throughout the day. She notes that because of feeling ill she also had reduced appetite. She currently notes that she still has some lower abdominal discomfort, but states that the dysuria has for the most part resolved and she is no longer visible peeing blood. She denies any fever, chills, SOB, chest pain, visual changes, weakness. Med Hx - Anxiety, Hematuria secondary to UTI's Surg HX: Sinus surgery Soc Hx: Denies tobacco, alcohol, illicit drug use. Notes history of tobacco and alcohol use but quit in 2002. 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 Discharge Exam Constitutional well developed, well nourished and cooperative; no acute distress Eyes + anicteric sclerae; no eyelid abnormality, no conjunctival abnormality and no scleral abnormality ENMT external ear and nose normal, oropharynx normal Neck trachea midline, no thyromegaly Respiratory normal respiratory effort; no cough Auscultation: lungs clear to auscultation bilaterally; no diminished lung sounds, no crackles, no rales and no wheezes Cardiovascular Rate/Rhythm: regular rate and regular rhythm Heart Sounds: normal S1 and normal S2; no murmur and no cardiac rub Vessels: no JVD Extremities: no calf tenderness and no edema Gastrointestinal (Abdomen) Inspection/Auscultation: abdomen normal to inspection and normal bowel sounds; abdomen not distended Percussion/Palpation: + abdomen tender (mild discomfort with palpation of suprapubic ) and abdomen soft; no guarding and abdomen not rigid Musculoskeletal no cyanosis or clubbing, extremities motor strength 5/5 Head/Neck/Chest: normocephalic and head atraumatic Skin no rashes, warm and dry Psychiatric A+Ox3, euthymic affect Discharge Data Allergies Allergy/AdvReac Type Severity Reaction Status Date / Time cat dander Allergy Unknown Verified 05/15/21 21:25 house dust mite Allergy Unknown Verified 05/15/21 21:25 mold Allergy Unknown Verified 05/15/21 21:25 Consultations 05/15/21 23:53 ED Decision to Admit Stat Ordered Studies 05/15/21 20:10 CT abd pelvis wo con Stat 05/15/21 23:45 CT head/brain wo con Urgent Hospital Course (1) Acute hyponatremia: Patient is a 65 year old female with PMHx anxiety and hematuria secondary to UTI's that presents at the advice of her PCPs for concerns of worsening L flank pain with suspected UTI, hematuria, nausea, and vomiting. Urinary Tract Infection -CT ab/pelv negative for renal stones or hydronephrosis -UA with 3+ blood and Leuk est - cultures pending -Started on Macrobid and has taken 1x dose outpatient -CTX in ED, patient sent home with 6 days worth of cefdinir 300 mg twice daily. Hyponatremia with mild gap metabolic acidosis, secondary to polydipsia -Hyponatremia at Na 123 on admission. Sodium at 135 on last BMP likely has continued to increase prior to discharge. -Suspect secondary to patient's significant fluid intake throughout the day of 184oz or 5.4L of water -Received 2L NSS bolus in the ED Hypokalemia -K 3.4 on admission, Resolved -Will give 20meq KCl PO now Anxiety -Continue home Lexapro Dispo: Home Self Care DVT: SCDs Code: Full (2) Urinary tract infection: Total Time Total Time Spent Total Time Spent (In Minutes): <30 Discharge Plan Discharge Items Patient Disposition: Home - Self-Care Reason For Visit: HYPONATREMIA Discharge Diagnosis: UTI/Hyponatremia secondary to Primary Polydipsia Activity: Resume your previous activity Non-emergency contact: Primary Care Provider Call non-emergency contact if: you have any medication questions and your temperature is above 101 Follow-up/Referrals: Bethany Araujo MD [Primary Care Provider] - 05/23/21 10:20 am Diet: Regular Addtl Attending Provider Instructions: You were seen in the hospital for hematuria, nausea, vomiting, and flank pain. You had a workup done in the ER which revealed hyponatremia and UTI. You were admitted to the hospital and your UTI was treated with antibiotics and your hyponatremia was treated with IV fluids and electrolyte repletion. Your symptoms have stabilized and you are deemed safe to return home. We are sending you home with a new antibiotic that will likely cover your UTI better. It was sent to your pharmacy and you can start that antibiotic tonight. You are to take it once in the morning and once at night. This will be for 6 days including today. Please follow up with your PCP within one week. It was a pleasure to participate in your care and we wish you a safe and speedy recovery. Pending Studies at Discharge: No Stand-Alone Forms: [facility], Smoking Cessation Medications and DC Order Prescriptions: New cefdinir 300 mg capsule 300 mg PO BID 6 Days Qty: 12 RF: 0 Continued escitalopram oxalate 10 mg tablet 10 mg PO DAILY Qty: 90 RF: 3 Discontinued nitrofurantoin monohyd/m-cryst [Macrobid] 100 mg capsule 100 mg PO Q12H 5 Days Qty: 10 RF: 0 Discharge Orders: Discharge Order (Routine); Ordered 05/16/21 Ordered By: Jerrell Diaz/Other Patient Handouts: Hyponatremia Dc Admission Data Admit Date/Time: 05/16/21 00:46 Attending Provider: Stephen Arnold Admit Provider: Panda Wen Primary Care Provider: Bethany Araujo Other Providers: Alexis Marie Other Interventions: Discharge Summary Assessment (RN) Last Done: 05/16/21 15:00 Supervising Physician Co-Signing Physician Notes I personally examined the patient and verified all miles points of history and exam, discussed case, and agree with decision making with Dr Kumar Feeling better. Nausea gone. Flank pain gone. Overall improved. Dizziness is essentially improved as well. Vitals noted, in general she is awake and alert pleasant no distress. HEENT normocephalic atraumatic mucous membranes moist. Breathing unlabored no accessory muscle use good effort. Skin shows no rashes no pallor or icterus. Gait is stable. Hyponatremiafrom polydipsia. Improved. Fortunately no sequelae. Discussed safe ranges for drinking water. Stable for home in this regard. Urinary tract infectiongiven her flank pain and nausea, I suspect she did have degree of pyelonephritistherefore changing antibiotics from nitrofurantoin to a beta-lactamshe was given ceftriaxone in the hospital, will finish out a course of treatment with cefdinir. Overall stable for home. Otherwise as above.
--- NOTE | 2021-05-16 18:01 | Billing Data ---
Date of Service May 16, 2021 Coding Level of Care Code D/C DAY MANAGEMENT <30 MINS
[2021-05-16] MEDS ORDERED: cefTRIAXone SODIUM 1,000 MG in DEXTROSE 5% 50 ML IV SCH (23:00)
--- NOTE | 2021-05-17 02:47 | Billing Data ---
Date of Service May 17, 2021 Coding Level of Care Code 63163 Initial Inpt Care Lvl 3
--- NOTE | 2021-05-17 06:30 | Electrocardiogram Report ---
Test Reason : Blood Pressure : / mmHG Vent. Rate : 070 BPM Atrial Rate : 070 BPM P-R Int : 162 ms QRS Dur : 070 ms QT Int : 410 ms P-R-T Axes : 063 071 070 degrees QTc Int : 442 ms Normal sinus rhythm Nonspecific T wave abnormality No previous ECGs available Confirmed by Torsten Walls ([id number]) on 05/17/2021 6:29:46 AM Referred By: Bethany Araujo Confirmed By:Torsten Walls
== END 2021-05-16 16:50 | disposition home or self-care (01) | DRG 690 ==
LOC: ED 19:25 → SUATTDRO 05-16 00:46 → 3N 05-16 00:46
DX: Z87.891 Personal history of nicotine dependence; E87.6 Hypokalemia; Z79.899 Other long term (current) drug therapy; E87.2 Acidosis; N39.0 Urinary tract infection, site not specified; R63.1 Polydipsia; F41.9 Anxiety disorder, unspecified; E87.1 Hypo-osmolality and hyponatremia